=== PATIENT | female | born 1965 | race Caucasian/White ===

== ENCOUNTER 2017-07-16 17:15 | Inpatient (IN) | payer OTHER ==
[~2017-07-16] VITALS: Ht 157.5 cm; Wt 129.2 kg
--- NOTE | ~2017-07-16 | H ---
[facility] [place] [address] HISTORY AND PHYSICAL Name: JERICHO COX Room #: 455-P ADM IN M.R.#: [id number] Admission: 07/16/17 Attend Phys: Jamilah Aguilar Discharge: Date of : 61 Report #: [id number] THIS REPORT FOR: //name// CC: FAM physician/PCP Jamilah Aguilar DATE OF SERVICE: 07/16/2017 ATTENDING PHYSICIAN: Dr. Jesse Flowers. PRIMARY CARE PHYSICIAN: None. CHIEF COMPLAINT: Stroke. HISTORY OF PRESENT ILLNESS: The patient is a 52-year-old female, who initially presented to [facility] for left-sided weakness. On the morning of 07/15, she had an episode of left-sided weakness and sort of felt funny to walk because of her left leg weakness. Her symptoms completely resolved, so she went to work and said she was feeling fine. Around evening, prior to going to bed, around 8 p.m., she again had onset of the same symptoms. Initially, she had thought that it was related to a reaction to some flea spray she had used in the home earlier in the day, so she did not think much of it. She woke up yesterday morning with the same symptoms; therefore, she presented to the ER at [facility] for evaluation. She also had noticed that when she tried to type on the keyboard, her left hand did not seem to be working as well. She tried moving her arm around and said it felt funny and heavy and disconnected from the rest of her body. When she would walk, her stated that she would lean to the left and was unsteady. In the ER at [facility], apparently she did have some left-sided facial droop. She denies having any speech changes. She denies any history of strokes or CVAs in the past. She was told she likely has high blood pressure and hyperlipidemia, but she was never started on any medications in the past. She was transferred to [facility] for further neurologic evaluation and testing. PAST MEDICAL HISTORY: Hypertension, hyperlipidemia, not currently on treatment. PAST SURGICAL HISTORY: Bilateral tubal ligation and tonsillectomy. ALLERGIES: None. HOME MEDICATIONS: She does take aspirin daily and also multiple NSAIDs p.r.n. for arthritis when she is active. She has a pill bottle full of multiple pills and says they are all different antiinflammatory medications including Aleve, naproxen and ibuprofen, but she never takes more than 1 or 2 a day. SOCIAL HISTORY: The patient lives at home with her spouse[place] [address] HISTORY AND PHYSICAL Name: JERICHO COX Room #: 455-P [facility] IN M.R.#: [id number] Admission: 07/16/17 Attend Phys: Jamilah Aguilar Discharge: Date of : 61 Report #: [id number] processing from home. She denies any tobacco or drug use. She drinks alcohol rarely. FAMILY HISTORY: Her mother is alive and has a history of endometrial cancer, heart disease, and diabetes. Her father is alive and has a history of heart disease with stents as well as prostate cancer. REVIEW OF SYSTEMS: The patient has experienced some flea bites to her lower extremities. She does have known fleas in the home because of her animals and this is a recurrent issue and they are currently going through some debugging treatment at home to kill the fleas. She denies any recent chest pain or palpitations, denies shortness of breath. All other 12-point review of systems was reviewed with the patient, otherwise negative unless stated in the HPI. PHYSICAL EXAMINATION: GENERAL: The patient is an alert female, in no acute distress. VITAL SIGNS: Temperature is 36.9, heart rate 73, respirations 20, blood pressure is 157/81, oxygen 98% on room air. HEENT: PERRLA. Sclerae is nonicteric. Oral mucosa is pink and moist. NECK: Supple, no JVD noted. No carotid bruit auscultated. CARDIAC: Normal S1, S2. No murmurs, rubs or gallops. RESPIRATORY: Breath sounds are clear bilaterally. No wheezing or rhonchi. Breathing is nonlabored. ABDOMEN: Obese, soft, nontender, nondistended with positive bowel sounds. VASCULAR: Trace bilateral lower extremity edema. Pedal pulses are 2+. NEUROLOGIC: The patient is alert and oriented x 3. Speech is clear. There is no facial asymmetry. Muscle strength is 5/5 in bilateral upper and lower extremities. I really did not appreciate any left-sided weakness at this time. Coordination is intact with ibquuo-ew-pync testing and dxny-vi-yhgu rubs with her lower extremities. She is not having any difficulty with her speech. I did not see her ambulate. SKIN: Intact except for some bug bites in her lower extremities, none of these look infected or have any drainage. LABORATORY AND DIAGNOSTICS: Lab work from [facility] [place] showed a WBC of 9.04, hemoglobin 12.9, platelets 294. Sodium 140, potassium 3.7, BUN 11, creatinine 0.76 and glucose 114. LFTs are within normal limits. Magnesium 1.8. INR is 1.14. EKG showed normal sinus rhythm. CT of the head on 07/16 was negative but her MRI of the brain showed a 10 x 5 mm focus of acute or recent lacunar type infarct in the right parietal lobe in nielsen radiata. The MRA the head was negative in the [place] for any evidence of significant stenosis or occlusion or aneurysm and MRA of the neck was negative. ASSESSMENT AND PLAN: 1. Acute cerebrovascular accident. The patient is now 36 hours post onset of symptoms. She was not a tPA candidate when she presented to [facility]. Her [facility] [address] [place] [address] HISTORY AND PHYSICAL Name: JERICHO COX Room #: 455-P [facility] IN [facility]#: [id number] Admission: 07/16/17 Attend Phys: Jamilah Aguilar Discharge: Date of : 61 Report #: [id number] symptoms have improved. 2. Hyperlipidemia. She has never been on any medications, lipid panel is pending. 3. Code status. The patient wishes to be a DNR. 4. DVT prophylaxis. Place SCDs. We will continue to follow the patient closely throughout the hospitalization and make changes based on clinical status. <ELECTRONICALLY SIGNED> By: DAMIAN Gentile 07/18/17 0658 DAMIAN Gentile /nt
--- NOTE | ~2017-07-16 | 2DMMODE ---
[facility] [address] [place] [address] 2 D/M-MODE ECHOCARDIOGRAM Name: JERICHO COX Room #: 455-P ADM IN M.R.#: [id number] Admission: 07/16/17 Attend Phys: Jamilah Cardenas Discharge: Date of : 61 Date of Service: 07/17/17 1042 Report #: [id number] THIS REPORT FOR: //name// APPROVED REPORT Study performed: 07/17/2017 08:24:59 EXAM: Comprehensive 2D, Doppler, and color-flow Echocardiogram Patient Location: Bedside Room #: [facility] Status: routine BSA: 2.22 HR: 80 bpm BP: 141/95 mmHg Other Information Study Quality: Good Indications CVA/TIA Hypertension/HDD 2D Dimensions RVDd: 33.70 mm LVEF(%): 67.32 (>50%) IVSd: 14.33 (7-11mm) LVOT Diam: 20.25 (18-24mm) LVDd: 40.10 mm PWd: 13.66 (7-11mm) Ascending Ao: 27.40 (22-36mm) LVDs: 25.31 (25-40mm) Aortic Root: 29.93 mm IVC: 11.00 mm Roman's LVEF: 67.32 % Volumes Left Atrial Volume (Systole) Single Plane 4CH: 50.35 mL Single Plane 2CH: 53.33 mL LA ESV Index: 25.00 mL/m2 Aortic Valve AoV Peak Gene.: 1.30 m/s AO Peak Gr.: 6.80 mmHg LVOT Max P.97 mmHg LVOT Max V: 1.00 m/s BRITTNEY Vmax: 2.46 cm2 Mitral Valve E/A Ratio: 1.5 MV Decel. Time: 196.15 ms [facility] [place] [address] 2 D/M-MODE ECHOCARDIOGRAM Name: JERICHO COX [facility]: 455[facility] ..#: [id number] Admission: 07/16/17 Attend Phys: Jamilah Cardenas Discharge: Date of : 61 Date of Service: 07/17/17 1042 Report #: [id number] MV E Max Gene.: 0.60 m/s MV A Gene.: 0.39 m/s MV PHT: 56.88 ms IVRT: 87.66 ms Pulmonary Valve PV Peak Gene.: 1.01 m/s PV Peak Gr.: 4.12 mmHg Pulmonary Vein P Vein S: 0.35 m/s P Vein A: 0.26 m/s P Vein D: 0.27 m/s P Vein A Dur.: 115.3 msec P Vein S/D Ratio: 1.30 Left Ventricle The left ventricle is normal size. There is normal LV segmental wall motion. Mild concentric left ventricular hypertrophy. The left ventricular systolic function is normal. The left ventricular ejection fraction is within the normal range. LVEF is 60-65%. The left ventricular diastolic function is normal. Right Ventricle The right ventricle is normal size. The right ventricular systolic function is normal. Atria The left atrium size is normal. The right atrium size is normal. Aortic Valve The aortic valve is normal in structure. No aortic regurgitation is present. There is no aortic valvular stenosis. Mitral Valve The mitral valve is normal in structure. There is no mitral valve regurgitation noted. No evidence of mitral valve stenosis. Tricuspid Valve The tricuspid valve is normal in structure. There is no tricuspid valve stenosis. There is no tricuspid valve regurgitation noted. Pulmonic Valve The pulmonary valve is normal in structure. There is no pulmonic valvular regurgitation. [facility] [address] [address] 2 D/M-MODE ECHOCARDIOGRAM Name: JERICHO COX Room #: 455-P [facility] IN [facility]#: [id number] Admission: 07/16/17 Attend Phys: Jamilah Cardenas Discharge: Date of : 61 Date of Service: 07/17/17 1042 Report #: [id number] The aortic root is normal in size. IVC is normal in size and collapses >50% with inspiration. Pericardium There is no pericardial effusion. <Conclusion> The left ventricle is normal size. LVEF is 60-65%. The aortic valve is normal in structure. The mitral valve is normal in structure. The tricuspid valve is normal in structure. The pulmonary valve is normal in structure. <ELECTRONICALLY SIGNED> By: Rad Serrano MD 07/17/17 1042 [id number] Rad Serrano MD /INF
[2017-07-16 20:05] VITALS: BP 157/81
[2017-07-17] VITALS (7 sets, daily range): BP systolic 126–149; BP diastolic 55–95
[2017-07-17 02:58] LABS: URINE BILIRUBIN NEGATIVE (Negative); URINE BLOOD 2+ (Negative); URINE COLOR YELLOW; URINE GLUCOSE-RANDOM* NEGATIVE (Negative); URINE KETONES NEGATIVE (Negative); URINE LEUKOCYTES-REFLEX NEGATIVE (Negative); URINE PROTEIN (DIPSTICK) NEGATIVE (Negative); URINE SPECIFIC GRAVITY 1.015 (1.003-1.035); URINE UROBILINOGEN 0.2 E.U./dl (0.2-1.0)
[2017-07-17 03:30] LABS: CASTS None Seen /LPF (None Seen); SQUAMOUS 0-3 Few /LPF (0-3)
[2017-07-17 03:31] LABS: CRYSTALS None Seen /LPF (None Seen); URINE RBC 0-2 Rare /HPF (0-2); URINE WBC-REFLEX 0-5 Rare /HPF (0-5)
[2017-07-17 03:32] LABS: AMORPHOUS URATES Moderate /LPF (None Seen)
[2017-07-17 06:44] LABS: CHOLESTEROL 187 mg/dL (<200); HDL CHOLESTEROL 53 mg/dL (>40); LDL CHOLESTEROL 117 mg/dL (<100); TC:HDL 3.5 Ratio (Not establshd); TRIGLYCERIDE 87 mg/dL (<150); VLDL 17 mg/dL (<40)
[2017-07-18 02:07] LABS: GLYCOHEMOGLOBIN (HGB A1C) 5.5 % (4.8-5.6)
[2017-07-18 03:41] VITALS: BP 107/42
[2017-07-18 07:32] VITALS: BP 152/82
[2017-07-18] MEDS ORDERED: ATORVASTATIN CA10 MG PO (10:29)
[2017-07-18] MEDS ORDERED: CLOPIDOGREL75 MG PO (10:29)
[2017-07-18] MEDS ORDERED: NORVASC10 MG PO (10:29)
[2017-07-18 11:02] VITALS: BP 147/96
[2017-07-18 11:49] VITALS: BP 147/96
== END 2017-07-18 16:12 | disposition home or self-care (01) | DRG 65 ==
LOC: 4W 17:15
PROVIDERS: Nurse Practitioner Acute Care
DX: I63.9 Cerebral infarction, unspecified (principal); Z68.43 Body mass index [BMI] 50.0-59.9, adult; I10 Essential (primary) hypertension; E78.5 Hyperlipidemia, unspecified; Z66 Do not resuscitate; Z80.59 Family history of malignant neoplasm of other urinary tract organ; Z82.49 Family history of ischemic heart disease and other diseases of the circulatory system; Z83.3 Family history of diabetes mellitus; Z80.42 Family history of malignant neoplasm of prostate; Z79.82 Long term (current) use of aspirin; Z79.899 Other long term (current) drug therapy; E66.9 Obesity, unspecified
CPT/HCPCS: 10047